=== PATIENT | male | born 1930 | race Caucasian/White ===

== ENCOUNTER → 2016-11-27 | Outpatient (CLI) | payer MEDICARE ==
[~2016-11-27] MED LIST: ENAL5TAB PO; FELO5TAB PO; METO25TA35 PO; PARO20TA4 PO; TAMS0.4C2 PO
== END | disposition home or self-care (01) ==
LOC: ROC 11:21
PROVIDERS: ATTEND Radiology Radiation Oncology
DX: C34.2 Malignant neoplasm of middle lobe, bronchus or lung (principal)
CPT/HCPCS: G0463